=== PATIENT | female | born 1945 | race Caucasian/White ===

== ENCOUNTER → 2019-06-06 | Day surgery (SDC) | payer MEDICARE ==
[2019-06-05 12:52] LABS: BASOPHILS # (AUTO) 0.1 (0.0-0.1); BASOPHILS % 0.6 % (0.0-1.0); EOSINOPHILS # (AUTO) 0.2 (0.0-0.4); EOSINOPHILS % 2.2 % (0.0-6.0); HEMATOCRIT 40.1 % (34.2-44.1); LYMPHOCYTES % 18.6 % (18.0-39.1); MEAN CORPUSCULAR HEMOGLOBIN 27.9 pg (28-32); MEAN CORPUSCULAR HGB CONC 32.4 g/dL (31-35); MEAN CORPUSCULAR VOLUME 86.1 fL (81-99); MONOCYTES % 9.8 % (4.4-11.3); NEUTROPHILS # (AUTO) 7.3 (2.1-6.9); NEUTROPHILS % 68.3 % (38.7-80.0); PLATELET COUNT 329 x10e3/uL (140-360); RED BLOOD COUNT 4.66 x10e6/uL (3.6-5.1); RED CELL DISTRIBUTION WIDTH 12.7 % (11.7-14.4)
[2019-06-05 13:03] LABS: INR 0.98; PROTHROMBIN TIME 13.5 seconds (11.9-14.5)
[2019-06-05 13:10] LABS: ALBUMIN 3.5 g/dL (3.5-5.0); ALBUMIN/GLOBULIN RATIO 1.1 (0.8-2.0); ANION GAP 14.1 mmol/L (8-16); CALCIUM 10.4 mg/dL (8.4-10.2); CREATININE, SERUM 1.29 mg/dL (0.57-1.11); POTASSIUM 4.1 mmol/L (3.5-5.1)
--- NOTE | 2019-06-05 14:58 | NUR ---
Notified Dr. Barrera of creatinine 1.29 and eGFR 40. No new orders at this time.
[~2019-06-06] VITALS: Ht 152.4 cm; Wt 78.9 kg
[2019-06-06] VITALS (12 sets, daily range): BP systolic 101–154; BP diastolic 66–88
[~2019-06-06] MED LIST: AMLODIPINE BESY10 MG PO; ATORVASTATIN CA20 MG PO; ATROPINE SULFATE 0.1 MG/ML 10ML SYR ONE; BALSALAZIDE DI750 MG PO; CAPTOPRIL50 MG PO; CLOPIDOGREL BISULFATE 75 MG TAB ONE; DIPHENHYDRAMINE HCL INJ 50 MG/ML VIAL ONE; FENTANYL CITRATE/PF 100MCG/2 ML INJ ONE; GLIPIZIDE5 MG PO; HALCION0.25 MG PO; HEPARIN SOD (PORCINE) 1000 UNIT/ML 30ML ONE; HYDROCODONE/APAP 5MG-325MG TAB ONE; JANUMET XR 50-1 EAC1 PO; MELOXICAM15 MG PO; MIDAZOLAM HCL 2 MG/2 ML VIAL ONE; NITROGLYCERIN/D5W 200 MCG/ML 250 ML ONE; NORCO 5-325 TA1 EACH PO; SODIUM CHLORIDE 0.9% 1000ML 1,000 ML ONE; VERAPAMIL HCL 2.5 MG/ML 2 ML VIAL ONE; [UNRECOGNIZED DRUG - OTHER] PO
--- OUTSIDE RECORDS SUMMARY | 2019-06-06 11:33 | XMS REPORT ---
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 Allergies, Adverse Reactions, Alerts Allergy Name Allergy Type Status Severity Reaction(s) Onset Date Inactive Date Treating Clinician Comments temazepam DA Active [place] 2018-06-24 00:00:00 No Known Allergies DA Active 2018-06-21 00:00:00 No Known Contrast Allergies DA Active U 2008-04-20 00:00:00 No Known Drug Allergies DA Active U 2008-04-20 00:00:00 No Known Food Allergies DA Active U 2008-04-20 00:00:00 No Known Other Allergies DA Active U 2008-04-20 00:00:00 No Known Drug Intolerances DA Active U 2008-04-19 00:00:00 Medications This patient has no known medications.
--- NOTE | 2019-06-06 14:50 | NUR ---
1502 bedside report received from Ciro JACKMAN Rt Peripheral fix byDr Barrera ,via left Mynx site No gross issues pain pallor pressure or dysrhythmia. Skin warm and dry integrity appears . IV 20g to left hand for 1iter hand at 100cc/hr, presents healthy w/o s/s of infiltration or complaint. Abdomen soft and supple. pt offered toileting, denies need to urinate or defecate. No personal affects with patient. Personal care giver at bedside. Pt and personal child care associate verbalizes understanding of POC. Aware HOB down and left leg straight till 630pm. Dr Barrera at bedside and explains POc for left leg fix later and f/o Dr Barrera office in two weeks. Currently w/o complaint of pain or need. mary/cindy
--- NOTE | 2019-06-06 16:00 | NUR ---
1600 c/o rt shoulder pain 7/10 for flat time till 1830pm.Medicated Narco 5/325 tolerated po intake well and snack tray. Offered toileting w/o need. ds/rn
--- NOTE | 2019-06-06 17:00 | NUR ---
1700p states rt shoulder pain 2/10 comfortable without c/o eager to go home. Down time 630pm ds/rn
--- NOTE | 2019-06-06 17:57 | Operative Report ---
DATE OF PROCEDURE: SURGEON: Artemio Barrera DO PROCEDURES PERFORMED: 1. Conscious sedation, 90 minutes. 2. Abdominal aortography. 3. Bilateral extremity angiography. 4. Third-order peripheral angiography of the right lower extremity. 5. Secondary thrombectomy. 6. Orbital atherectomy and percutaneous transluminal angioplasty of the right posterior tibial artery. 7. Directional atherectomy and percutaneous transluminal angioplasty of the right popliteal and superficial femoral arteries. PREPROCEDURE DIAGNOSIS: Atherosclerotic peripheral arterial disease with lower extremity wounds. POSTPROCEDURE DIAGNOSIS: Atherosclerotic peripheral arterial disease with lower extremity wounds. ESTIMATED BLOOD LOSS: Less than 30 mL. SPECIMENS REMOVED: None. PROCEDURE IN DETAIL: After informed consent was obtained, the patient was brought to the cardiac catheterization laboratory in a fasting and nonsedated state. Bilateral groins were prepped and draped in the usual sterile fashion. A 2% lidocaine was instilled over the left anterior groin for local anesthesia. Using micropuncture needle, the left common femoral was accessed via modified Seldinger technique and a 5-Ecuadorean sheath was placed. Abdominal aortography was performed using Omni Flush catheter. This catheter was taken up and over the iliac bifurcation using an Omni Flush catheter and peripheral angiography was performed of the right lower extremity. This revealed severe occlusive peripheral arterial disease and decision was made to perform percutaneous intervention. I placed a 45 cm, 6-Ecuadorean up-and-over sheath. The patient received systemic heparin for therapeutic anticoagulation. Using a microcatheter, I crossed a Whisper wire into the distal posterior tibial vessel. A distal third order peripheral angiography injection revealed intraluminal status. I inserted a Viper wire. I performed orbital atherectomy and percutaneous angioplasty of the posterior tibial artery with a 2.5 mm balloon. I performed a directional atherectomy of the superficial femoral and popliteal stenoses. The popliteal stenosis was angioplastied with a 5 mm IN.PACT Admiral balloon. The mid and proximal portions of the superficial femoral artery were angioplastied with a 6 mm IN.PACT Admiral paclitaxel coated balloon. Final angiography revealed excellent angioplasty results with brisk antegrade flow distally. The patient tolerated the procedure well with no immediate complications. The patient was then brought back to room in stable condition. Hemostasis was achieved via Mynx device. PROCEDURAL FINDINGS: 1. The abdominal aorta and iliac systems are patent. 2. The right common femoral and deep femoral arteries are patent. The ostial and mid portion of the superficial femoral artery has severe 67% stenosis. There is a subtotal occlusion of the popliteal artery. The posterior tibial has a severe 70% to 80% diffuse disease. The peroneal and the anterior tibial arteries are patent. 3. The left common femoral and deep femoral arteries are patent. The left superficial femoral artery has severe 80% lesions. The popliteal artery is patent. There is washout of the tibial vessels, however, there appears to be a chronically occluded left posterior tibial occlusion. IMPRESSION: Peripheral artery disease, status post atherectomy and percutaneous transluminal angioplasty of the right posterior tibial, popliteal, and superficial femoral arteries. RECOMMENDATIONS: Continue aggressive medical therapy. Artmeio Barrera DO BM/MODL /[id number]
--- NOTE | 2019-06-06 18:30 | NUR ---
1830Pt meets DC criteria. left groin assessed for s/s of complication and presence of hematoma. Left Mynx site intact.warm, dry, no discolor, and pulses present. IV removed from left hand. Distal tip appears intact. VS WNL. Pt denies pain, sob, or need at this time. Significant other at bedside. Review of discharge paperwork and follow up instructions. verbalized understanding. Pt to wheelchair and transported to front of hospital. Transferred to private vehicle under own strength w/o incident with DC paperwork in hand. - ds/rn ---
== END | disposition home or self-care (01) ==
LOC: CATH LAB 11:26
PROVIDERS: ATTEND Internal Medicine Cardiovascular Disease
DX: I70.293 Other atherosclerosis of native arteries of extremities, bilateral legs (principal); I10 Essential (primary) hypertension; E78.00 Pure hypercholesterolemia, unspecified; E13.69 Other specified diabetes mellitus with other specified complication; Z01.812 Encounter for preprocedural laboratory examination; Z79.84 Long term (current) use of oral hypoglycemic drugs; Z68.32 Body mass index [BMI] 32.0-32.9, adult
CPT/HCPCS: 36415; 37186; 37225; 37229; 75630; 80053; 85025; 85610; C1714; C1724; C1725; C1760; C1769 ×3; C1887 ×2; C2623 ×3; J1200; J1644; J2250; J3010; J7030; 36247; 75716